=== PATIENT | male | born 1990 | race Caucasian/White ===

== ENCOUNTER 2020-09-24 04:16 | Emergency (ER) | payer SELFPAY ==
[2020-09-24] MEDS ORDERED: ONDANSETRON 4 MG/2 ML VIAL ONE (06:16)
[2020-09-24] MEDS ORDERED: NA CHLORIDE 0.9% 1,000 ML ONE (06:16)
[2020-09-24] MEDS ORDERED: MORPHINE 4 MG/ML SYR ONE (06:16)
[2020-09-24 07:07] LABS: Absolute Lymphocytes (CBC) 2.4 K/uL (0.7-4.9); Basophils % 0.5 % (0-1.3); Hematocrit 44.3 % (39.6-49.0); Lymphocytes % 32.8 % (15.3-44.8); RBC Red Blood Cell Count 5.03 M/uL (4.33-5.43)
[2020-09-24 07:09] LABS: Protime INR 1.04
[2020-09-24 07:22] LABS: Albumin 4.4 g/dL (3.4-5.0); Bilirubin Direct 0.1 mg/dL (0-0.2); Bilirubin Total 0.6 mg/dL (0.2-1.0); Potassium 3.6 mmol/L (3.5-5.1); Protein, Total 8.1 g/dL (6.4-8.2)
--- NOTE | 2020-09-24 08:35 | RAD REPORT ---
EXAM DESCRIPTION: CT - Chest Abdomen Pelvis W Cont - 09/24/2020 8:00 am CLINICAL HISTORY: Chest and abdomen pain. TRAUMA COMPARISON: No comparisons TECHNIQUE: Approximately 100 mL nonionic IV contrast was administered to the patient. All CT scans are performed using dose optimization technique as appropriate and may include automated exposure control or mA/KV adjustment according to patient size. FINDINGS: The lungs are clear.No pleural or pericardial effusion.No intrathoracic adenopathy. The liver, spleen, pancreas, adrenal glands and kidneys are within normal limits. No bowel obstruction, free air, free fluid or abscess. Normal appendix. No pathologic lymphadenopath y in the abdomen or pelvis. No fractures are evident. IMPRESSION: No acute/ traumatic abnormality detected.
[2020-09-24] MEDS ORDERED: MEPERIDINE HCL 25 MG/ML SYR ONE (08:43)
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
[2020-09-26 04:57] VITALS: TEMP 98.6
[2020-09-26 05:12] VITALS: BP 114/94; O2SAT 97
== END 2020-09-24 08:58 | disposition home or self-care (01) ==
LOC: ER 04:16
DX: S20.222A Contusion of left back wall of thorax, initial encounter (principal); W22.8XXA Striking against or struck by other objects, initial encounter; Y93.11 Activity, swimming; Y92.89 Other specified places as the place of occurrence of the external cause
CPT/HCPCS: 36415; 71260; 74177; 80048; 80076; 85025; 85610; 85730; 86850; 86900; 86901; J2175; J2405; J7030; Q9967

== ENCOUNTER 2021-05-27 08:19 | Emergency (ER) | payer SELFPAY ==
[2021-05-27] MEDS ORDERED: metroNIDAZOLE 500 MG TABLET ONE (09:11)
[2021-05-27] MEDS ORDERED: CIPROFLOXACIN HCL 500 MG TAB ONE (09:11)
--- NOTE | 2021-05-27 09:13 | EDPHYS ---
Physician Documentation [facility] Name: Fady Echeverria Age: 30 yrs Sex: Male : 1990 Arrival Date: 05/27/2021 Time: 08:20 Bed 7 Private MD: NYDIA Physician Tomasz Ashley HPI: 05/27 09:04 This 30 yrs old Male presents to ER via Ambulatory with complaints of Rectal amdaeo Bleeding. 09:04 The patient presents to the emergency department with bleeding from the rectum/anus, amadeo that is mild. Onset: The symptoms/episode began/occurred 6 month(s) ago. Context: the patient has no known special context relating to the rectal area complaint(s). Modifying factors: The symptoms are alleviated by remaining still, The symptoms are aggravated by bowel movement. Associate signs and symptoms: Pertinent positives: constipation. The patient has experienced similar episodes in the past, multiple times. Historical: - Allergies: 08:27 No Known Allergies; ll1 - PMHx: 08: None; ll1 - PSHx: 08:27 lump removed L breast; ll1 - Immunization history:: Client reports having NOT received the Covid vaccine. - Social history:: Smoking status: Reported history of juuling and/or vaping. Patient denies any tobacco usage or history of. - Family history:: not pertinent. ROS: 09:04 Constitutional: Negative for fever, chills, and weight loss, Eyes: Negative for injury, amadeo pain, redness, and discharge, ENT: Negative for injury, pain, and discharge, Neck: Negative for injury, pain, and swelling, Cardiovascular: Negative for chest pain, palpitations, and edema, Respiratory: Negative for shortness of breath, cough, wheezing, and pleuritic chest pain, Back: Negative for injury and pain, : Negative for injury, bleeding, discharge, and swelling, MS/Extremity: Negative for injury and deformity, Skin: Negative for injury, rash, and discoloration, Neuro: Negative for headache, weakness, numbness, tingling, and seizure, Psych: Negative for depression, anxiety, suicide ideation, homicidal ideation, and hallucinations, Allergy/Immunology: Negative for hives, rash, and allergies, Endocrine: Negative for neck swelling, polydipsia, polyuria, polyphagia, and marked weight changes, Hematologic/Lymphatic: Negative for swollen nodes, abnormal bleeding, and unusual bruising. 09:04 Abdomen/GI: Positive for rectal bleeding. Exam: 09:04 Constitutional: This is a well developed, well nourished patient who is awake, alert, amadeo and in no acute distress. Head/Face: Normocephalic, atraumatic. Eyes: Pupils equal round and reactive to light, extra-ocular motions intact. Lids and lashes normal. Conjunctiva and sclera are non-icteric and not injected. Cornea within normal limits. Periorbital areas with no swelling, redness, or edema. ENT: Nares patent. No nasal discharge, no septal abnormalities noted. Tympanic membranes are normal and external auditory canals are clear. Oropharynx with no redness, swelling, or masses, exudates, or evidence of obstruction, uvula midline. Mucous membranes moist. Neck: Trachea midline, no thyromegaly or masses palpated, and no cervical lymphadenopathy. Supple, full range of motion without nuchal rigidity, or vertebral point tenderness. No Meningismus. Chest/axilla: Normal chest wall appearance and motion. Nontender with no deformity. No lesions are appreciated. Cardiovascular: Regular rate and rhythm with a normal S1 and S2. No gallops, murmurs, or rubs. Normal PMI, no JVD. No pulse deficits. Respiratory: Lungs have equal breath sounds bilaterally, clear to auscultation and percussion. No rales, rhonchi or wheezes noted. No increased work of breathing, no retractions or nasal flaring. Back: No spinal tenderness. No costovertebral tenderness. Full range of motion. Male : Normal genitalia with no discharge or lesions. Skin: Warm, dry with normal turgor. Normal color with no rashes, no lesions, and no evidence of cellulitis. MS/ Extremity: Pulses equal, no cyanosis. Neurovascular intact. Full, normal range of motion. Neuro: Awake and alert, GCS 15, oriented to person, place, time, and situation. Cranial nerves II-XII grossly intact. Motor strength 5/5 in all extremities. Sensory grossly intact. Cerebellar exam normal. Normal gait. Psych: Awake, alert, with orientation to person, place and time. Behavior, mood, and affect are within normal limits. 09:04 Abdomen/GI: Inspection: abdomen appears normal, Bowel sounds: normal, Palpation: abdomen is soft and non-tender, Rectal exam: Prostate: normal, rectal tone normal, Stool: guaiac positive, hemorrhoid(s), are not appreciated, mass, is not appreciated, swelling, is not appreciated, Liver: no appreciated palpable abnormalities, Hernia: not appreciated. Vital Signs: 08:28 BP 154 / 95; Pulse 80; Resp 16; Temp 98.0; Pulse Ox 100% ; Weight 90.72 kg; Height 5 ll1 ft. 10 in. (177.80 cm); Pain 5/10; 08:45 BP 133 / 85 Supine; Pulse 74; ll1 08:47 BP 138 / 88 Sitting; Pulse 73; ll1 08:49 BP 147 / 85 Standing; Pulse 81; ll1 09:28 BP 128 / 66; Pulse 71; Resp 15; Pulse Ox 100% ; ll1 08:28 Body Mass Index 28.70 (90.72 kg, 177.80 cm) 1 MDM: 08:22 Patient medically screened. [facility] 09:04 Data reviewed: vital signs, nurses notes, radiologic studies. [facility] 05/27 08:46 Order name: Abdomen 1 View (KUB) XRAY [facility] 05/27 08:46 Order name: Orthostatics; Complete Time: 08:50 amadeo Administered Medications: 09:11 Drug: Cipro (ciprofloxacin) 500 mg Route: PO; ll1 09:29 Follow up: Response: No adverse reaction ll1 09:11 Drug: Flagyl (metroNIDAZOLE) 500 mg Route: PO; ll1 09:29 Follow up: Response: No adverse reaction [facility] Disposition Summary: 05/27/21 09:12 Discharge Ordered Location: Home amadeo Problem: new amadeo Symptoms: have improved amadeo Condition: Stable amadeo Diagnosis - GI Bleed/ Gastrointestinal hemorrhage, unspecified amadeo Followup: amadeo - With: Private Physician - When: 2 - 3 days - Reason: Recheck today's complaints, Continuance of care, Re-evaluation by your physician Followup: amadeo - With: - When: 2 - 3 days - Reason: Recheck today's complaints, Re-evaluation by your physician Discharge Instructions: - Gastrointestinal Bleeding amadeo - Rectal Bleeding amadeo - Discharge Summary Sheet jh6 - Rectal Bleeding, [id number] amadeo - Lower Gastrointestinal Bleeding amadeo Forms: - Work release form jh6 - Medication Reconciliation Form amadeo - Thank You Letter amadeo - Antibiotic Education amadeo - Prescription Opioid Use amadeo Prescriptions: - Colace 100 mg Oral Capsule - take 1 tablet by ORAL route every 12 hours; 30 tablet; Refills: 0, Product [facility] Selection Permitted - Flagyl 500 mg Oral Tablet - take 1 tablet by ORAL route every 8 hours for 7 days; 21 tablet; Refills: 0, [facility] Product Selection Permitted - Cipro 500 mg Oral Tablet - take 1 tablet by ORAL route every 12 hours for 7 days; 14 tablet; Refills: 0, [facility] Product Selection Permitted Signatures: Dispatcher [employer] Tomasz Porter MD MD cha Lewis, Lynsay, RN RN ll1
--- NOTE | 2021-05-27 09:13 | ER ---
Nurse's Notes [facility] Name: Fady Echeverria Age: 30 yrs Sex: Male : 1990 Arrival Date: 05/27/2021 Time: 08:20 Bed 7 Private MD: Diagnosis: GI Bleed/ Gastrointestinal hemorrhage, unspecified Presentation: 05/27 08:28 Chief complaint: Patient states: Rectal bleeding off/on for 1 year, worse for past two ll1 weeks. No fever or vomiting. Pain LLQ. Coronavirus screen: Vaccine status: Patient reports being unvaccinated. Client denies travel out of the [place] in the last 14 days. diarrhea, At this time, the client does not indicate any symptoms associated with coronavirus-19. Ebola Screen: Patient denies travel to an Ebola-affected area in the 21 days before illness onset. Initial Sepsis Screen: Does the patient meet any 2 criteria? No. Patient's initial sepsis screen is negative. Does the patient have a suspected source of infection? Yes: Acute abdominal pain. Risk Assessment: Do you want to hurt yourself or someone else? Patient reports no desire to harm self or others. Onset of symptoms was May 27, 2020. 08:28 Method Of Arrival: Ambulatory ll1 08:28 Acuity: LUPILLO 3 ll1 Triage Assessment: 08:29 General: Appears in no apparent distress. Behavior is calm, cooperative, appropriate ll1 for age. Pain: Complains of pain in LLQ Quality of pain is described as aching. GI: Reports lower abdominal pain, diarrhea, rectal bleeding, bloody stool. Historical: - Allergies: 08:27 No Known Allergies; ll1 - PMHx: 08:27 None; ll1 - PSHx: 08:27 lump removed L breast; ll1 - Immunization history:: Client reports having NOT received the Covid vaccine. - Social history:: Smoking status: Reported history of juuling and/or vaping. Patient denies any tobacco usage or history of. - Family history:: not pertinent. Screenin:29 Abuse screen: Denies threats or abuse. Nutritional screening: No deficits noted. ll1 Tuberculosis screening: No symptoms or risk factors identified. 09:29 Fall Risk Total [place] Fall Scale indicates No Risk (0-24 pts). ll1 Assessment: 09:13 Reassessment: No changes from previously documented assessment. Patient and/or family ll1 updated on plan of care and expected duration. Pain level reassessed. Patient is alert, oriented x 3, equal unlabored respirations, skin warm/dry/pink. Vital Signs: 08:28 BP 154 / 95; Pulse 80; Resp 16; Temp 98.0; Pulse Ox 100% ; Weight 90.72 kg; Height 5 ll1 ft. 10 in. (177.80 cm); Pain 5/10; 08:45 BP 133 / 85 Supine; Pulse 74; ll1 08:47 BP 138 / 88 Sitting; Pulse 73; ll1 08:49 BP 147 / 85 Standing; Pulse 81; ll1 09:28 BP 128 / 66; Pulse 71; Resp 15; Pulse Ox 100% ; ll1 08:28 Body Mass Index 28.70 (90.72 kg, 177.80 cm) ll1 ED Course: 08:20 Patient arrived in ED. as 08:22 Tomasz Ashley MD is Attending Physician. amadeo 08:22 Arm band placed on Patient placed in an exam room, on a stretcher. ll1 08:29 Triage completed. ll1 08:29 Patient has correct armband on for positive identification. Bed in low position. Call ll1 light in reach. Side rails up X 1. Pulse ox on. NIBP on. 08:30 Ana Lozoya RN is Primary Nurse. ll1 09:05 Abdomen 1 View (KUB) XRAY In Process Unspecified. EDMS 09:12 Jasiel Hou MD is Referral Physician. amadeo 09:28 No provider procedures requiring assistance completed. Patient did not have IV access ll1 during this emergency room visit. Administered Medications: 09:11 Drug: Cipro (ciprofloxacin) 500 mg Route: PO; ll1 09:29 Follow up: Response: No adverse reaction ll1 09:11 Drug: Flagyl (metroNIDAZOLE) 500 mg Route: PO; ll1 09:29 Follow up: Response: No adverse reaction 1 Outcome: 09:12 Discharge ordered by . amadeo 09:28 Discharged to home ambulatory. ll1 09:28 Condition: stable 09:28 Discharge instructions given to patient, family, Instructed on discharge instructions, follow up and referral plans. medication usage, Demonstrated understanding of instructions, follow-up care, medications, Prescriptions given X 3. 09:29 Patient left the ED. ll1 Signatures: Dispatcher [employer] Tomasz Porter MD MD cha Martinez, Amelia as Lewis, Lynsay RN RN ll1
--- NOTE | 2021-05-27 09:16 | RAD REPORT ---
EXAM DESCRIPTION: RAD - Abdomen 1 View (KUB) - 05/27/2021 9:03 am CLINICAL HISTORY: LOWER GI BLEED COMPARISON: Chest Abdomen Pelvis W Cont dated 09/24/2020 FINDINGS: Nonobstructive bowel gas pattern. No acute osseous abnormality.Visualized lungs are unrema rkable.No abnormal calcifications. Formed stool in the ascending colon. IMPRESSION: Nonobstructive bowel gas pattern.
[2021-05-27 09:36] VITALS: TEMP 98; O2SAT 100
[2021-05-27 09:41] VITALS: BP 128/66
== END 2021-05-27 09:29 | disposition home or self-care (01) ==
LOC: ER 08:19
DX: K92.2 Gastrointestinal hemorrhage, unspecified (principal); K59.00 Constipation, unspecified
CPT/HCPCS: 74018; 99284

== ENCOUNTER 2021-11-09 01:51 | Emergency (ER) | payer SELFPAY ==
--- OUTSIDE RECORDS SUMMARY | 2021-11-09 01:56 | XMS REPORT | Continuity of Care Document ---
:1990 Author Organization [facility] t Address [address] [place] [address] Care Team Providers Name Role Phone PCP, PATIENT DOES NOT HAVE A Primary Care Physician Unavaila ble PEPITO MARTINEZ Attending Clinician Unavailable Pepito Martinez MD Attending Clinician PEPITO MARTINEZ Admitting Clinician Unavailable Problems This patient has no known problems. Allergies, Adverse Reactions, Alerts Allergy Allergy Status Severity Reaction(s) Onset Inactive Treating Comm ents Source Name Type Date Date Clinician NO KNOWN Drug Active [facility] ALLERGIE Class [facility] [place] [facility] Social History Social Habit Start Date Stop Date Quantity Comments Source Exposure to 2021-10-10 2021-10-20 Not sure [facility] SARS-CoV-2 (event) 00:00:00 11:09:00 Medica l Branch Sex Assigned At [birth year] [facility] [place] 00:00:00 00:00:00 Medical Branch Smoking Status Start Date Stop Date Source Tobacco smoking consumption [facility] Branch Medications Ordered Filled Start Stop Current Ordering Indication Dosage Frequency Signature Comments Components Source Medication Medication Date Date Medication? Clinician (SIG) Name Name HYDROcodone No 1{tbl} 1 tablet, Univers -acetaminop 10-20 Oral, ity of [place] (NORCO) 19:30: 18:49 [place] 10[place]325 [place] 00 :00 dose, On Medica l tablet 1 [place] [facility] tablet 10/20/21 at 1430, POWER FENTanyl PF No 100ug 100 mcg, Univers (SUBLIMAZE 10-20 Intramuscu it y of (PF)) 17:30: 16:42 lar, ONCE, [place] injection 00 :00 1 dose, On Medi rachelle 100 mcg [place] 10/20/21 at 1230, STAT naproxen 2021- Yes [id number] 500mg Take 1 Univers 500 mg 10-20 [id number] tablet by ity o f tablet 00:00: 04:59 mouth in [place] 00 :00 the Medical morning Branch and 1 tablet in the evening. Take with meals. Do all this for 10 days. HYDROcodone 2021- Yes [id number] 1{tbl} Take 1 U nivers -acetaminop 10-20 tablet by it y of [place] (NORCO) 00:00[place] 04:59 [place] 10-325 mg 00 :00 every 6 Medical tablet (six) Branch hours as needed for Pain (scale 4-6) for up to 7 days. Indication s: acute pain Vital Signs Vital Name Observation Time Observation Value Comments Source Systolic blood 2021-10-20 18:45:00 135 mm[Hg] [facility] of [facility] Diastolic blood 2021-10-20 18:45:00 85 [facility]Hg[facility] 2021-10-20 18:45:00 85 /min [facility] Respiratory rate 2021-10-20 18:45:00 16 /min [facility] Oxygen saturation in 2021-10-20 18:45:00 97 /min [facility] Arterial blood by [facility] Pulse oximetry Branch Body temperature 2021-10-20 16:10:00 36.94 Kristyn [facility] Body height 2021-10-20 16:10:00 177.8 cm [facility] Body weight 2021-10-20 16:10:00 90.719 kg [facility] BMI 2021-10-20 16:10:00 28.70 kg/m2 [facility] Procedures Procedure Date / Time Performed Performing Clinician Sour e XR ANKLE 3+ VW LEFT 2021-10-20 17:25:00 Pepito Martinez [facility] XR FOOT 3+ VW LEFT 2021-10-20 17:25:00 Pepito Martinez [facility] CONSENT/REFUSAL FOR 2021-10-20 16:04:47 [facility] AND Name Medical Branch TREATMENT NOTICE OF PRIVACY 2021-10-20 16:03:43 Doctor Unassigned, No [facility] [place] [facility] Name Medical Branch Encounters Start End Encounter Admission Attending Care Care Encounter Source Date/Time Date/Time Type Type Clinicians Facility Department ID 2021-10-20 2021-10-20 Emergency X ARABELLA MARTINEZ ERT [id number] Univers 11:10:00 13:56:00 PEPITO hand [facility] 2021-10-20 2021-10-[address] [facility] [id number] Univers 11:10:00 13:56:00 Pepito POSEY [id number] i ty [facility] [id number] [facility] [id number] [facility] 084 Branch Results This patient has no known results.
[2021-11-09] MEDS ORDERED: NA CHLORIDE 0.9% 1,000 ML ONE (02:11)
[2021-11-09 02:21] LABS: Absolute Lymphocytes (CBC) 2.1 K/uL (0.7-4.9); Hematocrit 41.3 % (39.6-49.0); Lymphocytes % 25.8 % (15.3-44.8); MCV 86.6 fL (80-100); MPV 8.8 fL (7.6-11.3); RBC Red Blood Cell Count 4.76 M/uL (4.33-5.43)
[2021-11-09 02:31] LABS: Potassium 3.7 mmol/L (3.5-5.1)
[2021-11-09] MEDS ORDERED: FENTANYL CITR 100 MCG/2 ML ONE ×2 (03:13→03:52)
[2021-11-09] MEDS ORDERED: DERMABOND SKIN ADHESIVE TOP ONE (03:50)
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
[2021-11-09 09:32] VITALS: TEMP 98.6
[2021-11-09 09:34] VITALS: O2SAT 100
[2021-11-09 09:38] VITALS: BP 111/73
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
== END 2021-11-09 05:47 | disposition home or self-care (01) ==
LOC: ER 01:51
PROC: 0JQ00ZZ Repair Scalp Subcutaneous Tissue and Fascia, Open Approach (ICD-10-PCS; principal; 2021-11-09)
PROC: 0JQ10ZZ Repair Face Subcutaneous Tissue and Fascia, Open Approach (ICD-10-PCS; 2021-11-09)
DX: S06.0X9A Concussion with loss of consciousness of unspecified duration, initial encounter (principal); S01.01XA Laceration without foreign body of scalp, initial encounter; S20.411A Abrasion of right back wall of thorax, initial encounter; S70.311A Abrasion, right thigh, initial encounter
CPT/HCPCS: 36415; 70450; 71260; 72125; 74177; 80048; 82565; 85025; 85610; 85730; 99284; J3010; J7030; Q9967

== ENCOUNTER 2021-11-21 15:24 | Emergency (ER) | payer SELFPAY ==
--- OUTSIDE RECORDS SUMMARY | 2021-11-21 15:27 | XMS REPORT | Continuity of Care Document ---
:1990 Author Organization [facility] t Address [address] [place] [address] Care Team Providers Name Role Phone PCP, [...] Active [facility] [place] [facility] Social History Social Habit Start Date Stop Date Quantity Comments Source Exposure to 2021-10-10 2021-10-20 Not sure [facility] SARS-CoV-2 (event) 00:00:00 11:09:00 Medica l Branch Sex Assigned At [birth year] [facility] y of [place] 00:00:00 00:00:00 Medical Branch Smoking Status Start Date Stop Date Source Tobacco smoking consumption [facility] Medications Ordered Filled Start Stop [...] 10/20/21 at 1230, STAT naproxen 2021- Yes [id number] 500mg Take 1 [facility] 500 mg 10-20 [id number] tablet by ity o f tablet 00:00: [...] 2021-10-20 18:45:00 135 mm[Hg] [facility] Diastolic blood 2021-10-20 18:45:00 85 mm[facility]Hg] [facility] rate 2021-10-20 18:45:00 85 /min [facility] Respiratory rate 2021-10-20 18:45:00 16 /min [facility] Oxygen saturation in 2021-10-20 18:45:00 97 /min [facility] Arterial blood by [facility] Pulse oximetry Branch Body temperature 2021-10-20 16:10:00 36.94 Kristyn [facility] Body height 2021-10-20 16:10:00 177.8 cm [facility] Body weight 2021-10-20 16:10:00 90.719 kg [facility] BMI 2021-10-20 16:10:00 28.70 kg/m2 [facility] Procedures Procedure Date / Time Performed Performing Clinician Sour e XR ANKLE 3+ VW LEFT 2021-10-20 17:25:00 Pepito Martinez [facility] XR FOOT 3+ VW LEFT 2021-10-20 17:25:00 Pepito Martinez [facility] CONSENT/REFUSAL FOR 2021-10-20 16:04:47 [facility] Unassigned, [facility] AND Name Medical Branch TREATMENT NOTICE OF PRIVACY 2021-10-20 16:03:43 Doctor Unassigned, No Univ [facility] [place] PRACTICES Name Medical Branch Encounters Start End Encounter Admission Attending Care Care Encounter Source Date/Time Date/Time Type Type Clinicians Facility Department ID 2021-10-20 2021-10-20 Emergency X ARABELLA MARTINEZ ERT [id number] Univers 11:10:00 13:56:00 PEPITO hand [facility] 2021-10-20 2021-10-20 Emergency Danis [facility] [id number] Univers 11:10:00 13:56:00 Pepito POSEY [id number] i ty [facility] [id number] [facility] [id number] [facility] 084 Branch Results This patient has no known results.
--- NOTE | 2021-11-21 16:15 | EDPHYS ---
Physician Documentation [facility] Name: Fady Echeverria Age: 30 yrs Sex: Male : 1990 Arrival Date: 11/21/2021 Time: 15:26 Bed 12 Private MD: Tomasz Collier HPI: 11/21 16:05 This 30 yrs old Male presents to ER via Ambulatory with complaints of Staple Removal. cp 16:05 The patient has norma on the scalp. Previous treatment: The patient was initially cp treated on November 09, 2021, the care was rendered at [facility], Treatment type: The patient's original treatment included norma. Sutures/norma progress: The patient has no c/o's. The wound is well-healing with no redness, swelling, discharge, or dehiscence reported. Historical: - PSHx: 15:42 lump removed L breast; aa5 - Immunization history:: Adult Immunizations up to date. - Social history:: Smoking status: Patient denies any tobacco usage or history of. ROS: 16:08 Constitutional: Negative for body aches, chills, fever, poor PO intake. cp 16:08 Cardiovascular: Negative for chest pain. cp 16:08 Respiratory: Negative for cough, shortness of breath, wheezing. 16:08 Neck: Negative for pain with movement, pain at rest. cp 16:08 Back: Negative for pain at rest, pain with movement. 16:08 Skin: Positive for norma right posterior scalp. 16:08 Neuro: Negative for dizziness, headache, weakness. 16:08 All other systems are negative. cp Exam: 16:10 Constitutional: The patient appears in no acute distress, alert, awake, comfortable, cp non-diaphoretic, well developed, well nourished. 16:10 Head/face: laceration of posterior right scalp appears to be healing well, minimal cp dehiscence noted, no drainage noted. 16:10 Neck: ROM/movement: is normal, is supple, without pain, no range of motions limitations.cp 16:10 Chest/axilla: Inspection: normal. 16:10 Cardiovascular: Rate: normal. 16:10 Respiratory: the patient does not display signs of respiratory distress, Respirations: normal. 16:10 Back: pain, is absent, ROM is normal. 16:10 Neuro: Orientation: to person, place \T\ time. Mentation: is normal, Motor: moves all fours, strength is normal, Gait: is steady. Vital Signs: 15:42 BP 154 / 91; Pulse 89; Resp 16 S; Temp 97.6(TE); Pulse Ox 99% on R/A; aa5 Procedures: 16:13 Suture/Staple removal: Removed 11 norma, from scalp, site appears well healed, cp Patient tolerated well. MDM: 16:04 Patient medically screened. cp 16:15 Data reviewed: vital signs, nurses notes. cp 16:15 Counseling: I had a detailed discussion with the patient and/or guardian regarding: the cp historical points, exam findings, and any diagnostic results supporting the discharge/admit diagnosis, to return to the emergency department if symptoms worsen or persist or if there are any questions or concerns that arise at home. Response to treatment: the patient's symptoms have markedly improved after treatment, and as a result, I will discharge patient. Administered Medications: No medications were administered Disposition Summary: 11/21/21 16:15 Discharge Ordered Location: Home cp Problem: new cp Symptoms: have improved cp Condition: Stable cp Diagnosis - Encounter for removal of sutures - staple removal from scalp cp Followup: cp - With: Private Physician - When: 1 - 2 days - Reason: Worsening of condition Discharge Instructions: - Discharge Summary Sheet cp - Suture Removal, Care After cp Forms: - Medication Reconciliation Form cp - Thank You Letter cp - Antibiotic Education cp - Prescription Opioid Use cp Signatures: Keli Ocampo RN RN aa5 Tomasz Brice PA PA cp Pippa Rust, RN RN bm7
--- NOTE | 2021-11-21 16:15 | ER ---
Nurse's Notes [facility] Name: Fady Echeverria Age: 30 yrs Sex: Male : 1990 Arrival Date: 11/21/2021 Time: 15:26 Bed 12 Private MD: Diagnosis: Encounter for removal of sutures-staple removal from scalp Presentation: 11/21 15:41 Chief complaint: Patient states: needs norma to back of head placed 12 days ago aa5 removed. Coronavirus screen: At this time, the client does not indicate any symptoms associated with coronavirus-19. Ebola Screen: Patient denies travel to an Ebola-affected area in the 21 days before illness onset. Initial Sepsis Screen: Does the patient meet any 2 criteria? No. Patient's initial sepsis screen is negative. Does the patient have a suspected source of infection? No. Patient's initial sepsis screen is negative. Risk Assessment: Do you want to hurt yourself or someone else? Patient reports no desire to harm self or others. Onset of symptoms was November 21, 2021. 15:41 Method Of Arrival: Ambulatory aa5 15:41 Acuity: LUPILLO 4 aa5 Historical: - PSHx: 15:42 lump removed L breast; aa5 - Immunization history:: Adult Immunizations up to date. - Social history:: Smoking status: Patient denies any tobacco usage or history of. Screenin:45 Abuse screen: Denies threats or abuse. Nutritional screening: No deficits noted. bm7 Tuberculosis screening: No symptoms or risk factors identified. Fall Risk None identified. Vital Signs: 15:42 BP 154 / 91; Pulse 89; Resp 16 S; Temp 97.6(TE); Pulse Ox 99% on R/A; aa5 ED Course: 15:26 Patient arrived in ED. am2 15:32 Tomasz Brice PA is PHCP. cp 15:33 Tomasz Ashley MD is Attending Physician. cp 15:41 Arm band placed on. aa5 15:42 Triage completed. aa5 16:45 Patient has correct armband on for positive identification. Call light in reach. bm7 16:45 No provider procedures requiring assistance completed. Patient did not have IV access bm7 during this emergency room visit. Administered Medications: No medications were administered Medication: 16:45 VIS not applicable for this client. bm7 Outcome: 16:15 Discharge ordered by . cp 16:46 Discharged to home ambulatory. bm7 16:46 Condition: good 16:46 Discharge instructions given to patient, Instructed on discharge instructions, follow up and referral plans. Demonstrated understanding of instructions, follow-up care. 16:46 Patient left the ED. bm7 Signatures: Keli Ocampo, RN RN aa5 Tomasz Brice PA PA cp Moreno, Amanda am2 Pippa Rust, RN RN bm7
[2021-11-23 06:23] VITALS: BP 154/91; TEMP 97.6; O2SAT 99
== END 2021-11-21 16:46 | disposition home or self-care (01) ==
LOC: ER 15:24
DX: Z48.02 Encounter for removal of sutures (principal)
CPT/HCPCS: 99281